=== PATIENT | male | born 1955 | race Caucasian/White ===

== ENCOUNTER 2021-03-27 11:12 | Day surgery (SDC) | payer BC, OTHER ==
[2021-03-24 08:39] VITALS: BMI 23.6
[~2021-03-27 11:12] MED LIST: LACTATED RINGERS 1,000 ML IV SCH; LIDOCAINE 1% (10MG/ML) FOR IV START INTRADERMA PRN
[2021-03-27 11:59] VITALS: TEMP 98
[2021-03-27] MEDS ORDERED: PROPOFOL 10 MG/ML 20 ML VIAL IV ONE (12:35)
--- NOTE | 2021-03-27 13:04 | P.PCN ---
Date of Procedure: 03/27/21 Description of Procedure: BRIEF HISTORY: Patient is a 65-year-old male presenting for outpatient colonoscopy for screening for colon cancer neoplasm colon. Patient does report a remote history of colonoscopy approximately 12 years ago. No change in bowel habits, blood per rectum or abdominal pain. No family history of colon cancer. PROCEDURE PERFORMED: Colonoscopy. PREOPERATIVE DIAGNOSIS: Screening for malignant neoplasm of the colon, patient reports last colonoscopy 12 years ago. ESTIMATED BLOOD LOSS: Minimal. IV sedation per Anesthesia. PROCEDURE: After informed consent was obtained, the patient, was brought into the endoscopy unit. IV sedation was administered by Anesthesia under continuous monitoring. Digital rectal examination was normal. Initially the Olympus CF-190 flexible video colonoscope was then inserted in the rectum, gradually advanced into the cecum without any difficulty. Careful examination was performed as the scope was gradually being withdrawn. Ileocecal valve and the appendiceal orifice were visualized and appeared normal. Prep was excellent. Mucosa of the cecum, ascending colon, transverse colon, descending colon, sigmoid colon, and rectum appeared normal. Retroflexion was performed in the rectum and no lesions were seen, with low-grade internal hemorrhoids noted. The patient tolerated the procedure well. IMPRESSION: Normal-appearing colon from rectum to cecum and normal terminal ileum. Internal hemorrhoids. RECOMMENDATIONS: Findings of this examination were discussed with the patient and his family. Okay to resume diet. Okay to resume medications. Recommend repeat colonoscopy in 10 years for screening for malignant neoplasm of the colon or sooner if any signs or symptoms which warrant further evaluation developed.
[2021-03-27 13:08] VITALS: RESP 16
[2021-03-27 13:29] VITALS: BP 131/75; PULSE 65
== END 2021-03-27 13:43 | disposition home or self-care (01) ==
LOC: ORWHC2ENDO 11:12
PROVIDERS: ATTEND Internal Medicine
DX: Z12.11 Encounter for screening for malignant neoplasm of colon (principal); K64.8 Other hemorrhoids; E78.5 Hyperlipidemia, unspecified; Z87.891 Personal history of nicotine dependence; Z98.890 Other specified postprocedural states; Z79.899 Other long term (current) drug therapy
CPT/HCPCS: J2704; G0121; 45378